=== PATIENT | female | born 1985 | race Caucasian/White ===

== ENCOUNTER 2016-07-04 10:08 | Observation (INO) | payer MEDICAID, OTHER ==
[~2016-07-04] VITALS: Ht 167.6 cm; Wt 58.5 kg
[~2016-07-04 10:08] MED LIST: CYCL-36 PO; NAPR550 PO; Z.0.NO CURRENT MEDS
[2016-07-04 10:12] VITALS: BP 116/79; PULSE 90; RESP 18; TEMP 97.6; O2SAT 98
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
[2016-07-04] MEDS ORDERED: SODIUM CHLORID 0.9% 500 ML INJ 500 ML IV ONE (11:15)
[2016-07-04] MEDS ORDERED: ONDANSETRON HCL 4 MG/2 ML VIAL IV PUSH ONE (11:15)
[2016-07-04] MEDS ORDERED: MORPHINE SULFATE 4 MG/ML INJ IV PUSH ONE (11:15)
[2016-07-04 11:40] LABS: BASOPHIL % 0.4 % (0.0-2.0); EOSINOPHIL # 0.1 TH/MM3 (0-0.4); HEMO FLAGS DIFF FINAL; LYMPH % 15.7 % (9.0-44.0); LYMPHOCYTE # 1.4 TH/MM3 (1.0-4.8); MEAN CORPUSCULAR HEMOGLOBIN 30.9 PG (27.0-34.0); MEAN CORPUSCULAR HGB CONC 33.2 % (32.0-36.0); MONO % 6.4 % (0.0-8.0); NEUT % 76.5 % (16.0-70.0); PLATELET COUNT 265 TH/MM3 (150-450); RED CELL DISTRIBUTION WIDTH 12.1 % (11.6-17.2); WHITE BLOOD COUNT 9.1 TH/MM3 (4.0-11.0)
[2016-07-04 12:00] LABS: POTASSIUM 3.7 MEQ/L (3.5-5.1)
[2016-07-04 12:03] LABS: BICARBONATE 27.3 MEQ/L (21.0-32.0)
[2016-07-04 12:16] VITALS: BP 140/81; PULSE 90; RESP 20; O2SAT 98
[2016-07-04 12:47] LABS: BETA HCG QUANT 24 MIU/ML (0-5)
[2016-07-04 19:20] VITALS: BP 126/64; PULSE 79; RESP 15; TEMP 98.3; O2SAT 99
[2016-07-04] MEDS ORDERED: ACETAMINOPHEN/HYDROcodone 325 MG/7.5 MG TAB PO PRN (22:30)
[2016-07-04] MEDS ORDERED: ACETAMINOPHEN 325 MG TAB PO PRN (22:30)
[2016-07-04] MEDS ORDERED: SODIUM CHLORID 0.9% 500 ML IV SCH (23:00)
[2016-07-04] MEDS ORDERED: LACTATED RINGER'S 1000 ML IV SCH (23:00)
[2016-07-04] MEDS ORDERED: INSULIN HUMAN REGULAR 1,000 UNITS/10 ML VIAL SQ PRN (23:00)
[2016-07-04] MEDS ORDERED: METOPROLOL TARTRATE 25 MG TAB PO PRN (23:00)
[2016-07-05 00:15] VITALS: BP 108/63; PULSE 71; RESP 16; TEMP 98.7; O2SAT 100
[2016-07-05 04:15] VITALS: BP 109/66; PULSE 63; RESP 16; TEMP 97.7; O2SAT 99
[2016-07-05 08:00] VITALS: BP 127/80; PULSE 80; RESP 18; TEMP 98.6; O2SAT 99
[2016-07-05] MEDS ORDERED: ceFAZolin INJ 1,000 MG VIAL ONE (08:24)
[2016-07-05] MEDS ORDERED: GENTAMICIN SULFATE 80 MG/2 ML VIAL ONE ×2 (08:24→10:17)
[2016-07-05] MEDS ORDERED: VANCOMYCIN HCL 1000 MG VIAL ONE ×2 (08:25→10:16)
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
[2016-07-05] MEDS ORDERED: MISC-226 (10:01)
[2016-07-05] MEDS ORDERED: ceFAZolin 2 GM PREMIX 50 ML ONE (10:16)
[2016-07-05] MEDS ORDERED: fentaNYL CITRATE 250 MCG/5 ML AMP ONE (10:20)
[2016-07-05] MEDS ORDERED: ACETAMINOPHEN 1000 MG/100 ML VIAL IV ONE (10:20)
[2016-07-05] MEDS ORDERED: DEXAMETHASONE SOD PHOS 4 MG/ML VIAL ONE (10:20)
[2016-07-05] MEDS ORDERED: HYDR-3288 PO (10:44)
[2016-07-05] MEDS ORDERED: ONDANSETRON HCL 4 MG/2 ML VIAL IVP PRN (10:45)
[2016-07-05] MEDS ORDERED: Post-op Orders (for Pharmacy) MISC XX ONE (10:45)
[2016-07-05] MEDS ORDERED: ACETAMINOPHEN/HYDROcodone 325 MG/7.5 MG TAB PO PRN (10:45)
[2016-07-05] MEDS ORDERED: MORPHINE SULFATE 4 MG/ML INJ IV PUSH PRN (10:45)
[2016-07-05] MEDS ORDERED: ceFAZolin INJ 1,000 MG VIAL IV ONE (10:47)
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
--- NOTE | 2016-07-05 11:36 | PD.OP ---
cc: Lew Marin MD Operative Report Date of Surgery: Jul 05, 2016 Preoperative Diagnosis: Postoperative Diagnosis: Procedure: ORIF right bimalleolar ankle fracture Anesthesia: Gen. Surgeon: Lew Marin Environmental Manager(s): MARSHA Chau PA-C The surgical procedure was assisted by my physician sales office assistant. My P.A. presence was necessary throughout this case for the manipulation and positioning of the surgical extremity. My P.A. was assisting me throughout the duration of this procedure. The skill set of a physician sales office assistant was medically necessary to complete this procedure. During the surgical case the registered nurse surgical services was working at the back table and the physician sales office assistant was directly assisting me. Operation and Findings: Patient was seen and evaluated preoperatively and found to have a displaced right bimalleolar ankle fracture. Informed consent was obtained after a detailed discussion of risk and benefits of surgery. The operative site was marked. Patient was brought to the OR, placed on the OR table, and given IV sedation and general endotracheal anesthesia. IV antibiotics were given preoperatively. A timeout procedure was performed. The left leg was prepped with alcohol followed by Hibiclens and draped in the usual sterile fashion. Attention was turned towards the distal fibula. A four-inch incision was made over the distal fibula. The subcutaneous tissue was dissected with Bovie. The fracture site was visualized. The fracture site was cleaned with curets. The fracture was now reduced. The fracture keyed into anatomic alignment. K-wires were used to h old provisional fixation. A lag screw was placed to compress fracture. A Synthes plate was selected. The plate was provisionally held to bone with K-wires. 3.5 cortical screws were used to compress the plate to bone. Multiple screws were placed above and below the fracture. Next attention was turned towards the medial malleolus. The medial malleolus supposed through a 3 cm incision. Saphenous vein was retracted. Fracture was visualized. Fracture was cleaned with curettes. Fracture was now reduced and keyed into anatomic alignment. K wires were used to hold provisional fixation. The medial malleolus was fractured into 2 relatively small fragments. Each fragment was reduced. K wires were used to hold provisional fixation. A 2.7 cortical screw was placed across the anterior fragment. An attempt was made to place a second 2.7 cortical lag screw across the other fragment. This fragment was too small and screw did not hold. Decision was made to the use only a single medial screw. Good compression was applied. Fluoroscopy confirmed well aligned fracture with well-placed hardware. Next, attention was turned to the syndesmosis. The syndesmosis was stressed. There was no widening of the syndesmosis with external rotation of the ankle. Incisions were thoroughly irrigated. The subcutaneous tissue was closed with 3- 0 PDS and the skin was closed with 3-0 nylon. Sterile dressings were applied. A well molded well-padded splint was applied. The patient was transferred to Recovery in stable condition. Needle and sponge counts were correct. Lew Marin MD Jul 05, 2016 11:36
[2016-07-05 11:53] VITALS: BP 120/57; PULSE 81; RESP 18; TEMP 98.6; O2SAT 96
[2016-07-05] MEDS ORDERED: ONDANSETRON HCL 4 MG/2 ML VIAL IV PUSH ONE (12:00)
[2016-07-05] MEDS ORDERED: PROPOFOL 200 MG/20 ML AMP IV ONE (12:00)
[2016-07-05] MEDS ORDERED: FAMOTIDINE 20 MG/2 ML VIAL IV ONE (12:00)
[2016-07-05] MEDS ORDERED: DO NOT ADM ANY ANTICOAGULANT DRUGS XX PRN (12:00)
[2016-07-05] MEDS ORDERED: *morphine SULFATE 8 MG/ML PERIprocedure ONLY ONE ×3 (12:06→12:26)
[2016-07-05] MEDS ORDERED: *MEPERIDINE 25 MG INJ VIAL PERIprocedural Use ONLY ONE (12:11)
[2016-07-05] MEDS ORDERED: *HYDROmorphone PF 1 MG VIAL PERIprocedural Use ONLY ONE (12:38)
--- NOTE | 2016-07-05 14:57 | RADRPT ---
EXAM DATE/TIME: 07/05/2016 11:24 [facility] COMPARISON: No previous studies available for comparison. INDICATIONS : ORIF right ankle. MEDICAL HISTORY : None. SURGICAL HISTORY : None. ENCOUNTER: Subsequent ACUITY: 2 days PAIN SCORE: Non-responsive. LOCATION: Right ankle. FINDINGS: Two view examination was performed of the right ankle. There is been open reduction and internal fixa tion of the bimalleolar fractures. The distal fibula secured with sideplate and osseous screws with a single osseous screw securing the medial malleolus. Ankle mortise is symmetric. Osseous structures a re in excellent anatomic alignment CONCLUSION: Successful open reduction and internal fixation of bimalleolar fractures as above. Ronal Fox MD on July 05, 2016 at 14:55 Board Certified Radiologist. This report was verified electronically.
[2016-07-05 16:00] VITALS: BP 135/92; PULSE 94; RESP 18; TEMP 97.2; O2SAT 99
[2016-07-05] MEDS ORDERED: ceFAZolin 2 GM PREMIX 50 ML IV SCH (18:00)
== END 2016-07-05 18:16 | disposition home or self-care (01) ==
LOC: PHEFT 10:08 → PHEDA 11:13 → HSDI 13:36 → N06B 19:26
PROVIDERS: ADMIT Orthopaedic Surgery Sports Medicine; ATTEND Orthopaedic Surgery Sports Medicine
DX: S82.841A Displaced bimalleolar fracture of right lower leg, initial encounter for closed fracture (principal); V27.4XXA Motorcycle driver injured in collision with fixed or stationary object in traffic accident, initial encounter; Y93.55 Activity, bike riding
CPT/HCPCS: 73600; 73610; 73630; 76000; 80048; 84702; 84703; 85025; 94150; 99211; 99284; C1713; E0113; G0378; G0463; J0131; J0690; J1100; J1170; J1580; J2175; J2270; J2405; J3010; J3370; J7040

== ENCOUNTER → 2016-08-14 | Outpatient (CLI) | payer MEDICAID, OTHER ==
[~2016-08-14] MED LIST changes: -CYCL-36 PO; +HYDR-3288 PO; +MISC-226; -NAPR550 PO; -Z.0.NO CURRENT MEDS
== END ==
LOC: HORT 12:06
PROVIDERS: ATTEND Physician Assistant
DX: Z46.89 Encounter for fitting and adjustment of other specified devices (principal)
CPT/HCPCS: L2114

== ENCOUNTER 2017-02-26 08:07 | Inpatient (IN) | payer MEDICAID ==
[2017-02-26] VITALS (26 sets, daily range): BP systolic 111–133; BP diastolic 50–91; PULSE 78–103; RESP 9–18; TEMP 97.9–98.2
[~2017-02-26] VITALS: Ht 167.6 cm; Wt 72.0 kg
[~2017-02-26 08:07] MED LIST changes: +AMOX500T PO; -HYDR-3288 PO; -MISC-226
[2017-02-26] MEDS ORDERED: LACTATED RINGER'S 1000 ML INJ 1,000 ML IV PRN (08:47)
[2017-02-26] MEDS ORDERED: LACTATED RINGER'S 1000 ML INJ 1,000 ML IV SCH (08:47)
[2017-02-26] MEDS ORDERED: OXYTOCIN 30 UNITS-500ML PREMIX 500 ML IV ONE (09:00)
[2017-02-26] MEDS ORDERED: CITRIC ACID-SODIUM CITRATE LIQ 30 ML UDC PO SCH (09:00)
[2017-02-26] MEDS ORDERED: ONDANSETRON HCL 4 MG/2 ML VIAL IV PUSH PRN (09:00)
[2017-02-26] MEDS ORDERED: MINERAL OIL 10 ML VIAL TOPICAL PRN (09:00)
[2017-02-26] MEDS ORDERED: SODIUM CHLORID 0.9% 500 ML INJ 500 ML IV PRN (09:00)
[2017-02-26] MEDS ORDERED: LIDOCAINE HCL 1% 50 ML VIAL I-DERMAL PRN (09:00)
[2017-02-26] MEDS ORDERED: LIDOCAINE HCL 1% 50 ML VIAL INFIL PRN (09:00)
[2017-02-26] MEDS ORDERED: PENICILLIN G POTASSIUM INJ 5,000,000 UNITS in SODIUM CHLORIDE 0.9% INJ 100 ML IV ONE (09:00)
[2017-02-26] MEDS ORDERED: SODIUM CHLOR 0.9% 1000 ML INJ 1,000 ML IV PRN (09:07)
--- NOTE | 2017-02-26 09:25 | PD ---
HPI Chief Complaint Contractions Date Seen: Feb 26, 2017 Time Seen: 09:00 Travel History International Travel<30 Days: No Contact w/Intl Traveler<30Days: No Known Affected Area: No History of Present Illness HPI Patient is a 31-year-old P2 at 38 weeks and 1 day who presents with contractions. She reports that she first started feeling contractions around 5 AM. There were about 30 minutes apart at that time. They progressed until there were about 5-10 minutes apart and were so painful that she was crying. She took her daughter to school and then presented to the OB ED. Regarding vaginal bleeding. She reports that she feels that she's been losing her mucous plug the last 5 days with associated pink, red, white mixed color vaginal discharge. She denies any leakage of fluid. She reports movement. [facility] She is GBS +. Weeks Gestation: 38 Para: 2 : 3 History Past Medical History Narrative Medical LGSIL on Pap Medical History: Denies Significant Hx Obstetric History Obstetric History Patient reports a prior history of hemorrhage with her last 2 deliveries. She delivered at 36 and 37 weeks, vaginal delivery, over 6 pounds for both deliveries. Past Surgical History Narrative Surgical Ankle surgery of her right ankle. Family History Narrative Family History Her mother has a history of colon cancer. Her paternal grandfather had an IL. Social History Narrative Social History Patient lives at home with her and 2 children. Alcohol Use: No Tobacco Use: No Substance Abuse: No Allergies-Medications (Allergen,Severity, Reaction): Coded Allergies: No Known Allergies (Verified Adverse Reaction, Unknown, 02/26/17) Home Meds Active Scripts Amoxicillin (Amoxicillin) 500 Mg Tab, 500 MG PO TID for Infection, #21 TAB 0 Refills Prov:Tahira Cuellar 02/14/17 Reported Medications Vit-Iron Carbonyl ( Plus Iron 29-1 mg) 29 Mg Iron-1 Mg Tab, 1 TAB PO DAILY for Nutritional Supplement, #30 TAB 0 Refills 02/26/17 Narrative Medication vitamins. Review of Systems General / Constitutional: No: Fever, Chills Eyes: No: Blurred Vision, Visual changes HENT: No: Headaches Cardiovascular: No: Chest Pain or Discomfort, Edema Respiratory: No: Short of Breath Gastrointestinal: No: Nausea, Vomiting Genitourinary: No: Dysuria Physical Exam Blood pressure 119/73, heart rate 78, respiratory rate 18, temperature 98.0, pain 8 out of 10 Narrative GENERAL: Well-nourished, well-developed patient. SKIN: Warm and dry. HEAD: Normocephalic and atraumatic. EYES: No scleral icterus. No injection or drainage. ENT: No nasal drainage noted. Mucous membranes pink. Airway patent. NECK: Supple, trachea midline. No JVD. CARDIOVASCULAR: Regular rate and rhythm without murmurs, gallops, or rubs. RESPIRATORY: Breath sounds equal bilaterally. No accessory muscle use. ABDOMEN/GI: Abdomen soft, non-tender, bowel sounds present, no rebound, no guarding Gravid to 38 weeks size GENITOURINARY: External Genitalia: intact and normal in appearance Dilatation: 5cm Effacement: 100% Station: -2 Presentation: Vertex Membranes: Intact, bulging Uterine Contractions: Irregular, about every 4-5 minutes FHT's: Category: Category 1 Baseline: 130 Reactive: Reactive Variability: Moderate Decels: None EXTREMITIES: No cyanosis or edema. BACK: Nontender without obvious deformity. No CVA tenderness. NEUROLOGICAL: Awake and alert. Motor and sensory grossly within normal limits. Five out of 5 muscle strength in all muscle groups. Normal speech. Data Data Vital Signs Reviewed: Yes Orders Orders Ob (2e) Additional Admit Info (02/26/17 08:48) Admit To Inpatient (02/26/17 ) Code Status (02/26/17 08:47) Vital Signs (Adult) .Per protocol (02/26/17 08:47) Activity Oob Ad Rosio (02/26/17 08:47) Heart (02/26/17 08:47) Amnioinfusion (02/26/17 08:47) Urinary Catheter Management .ONCE (02/26/17 08:47) Diet Liquid (02/26/17 Breakfast) Lactated Ringer's 1000 Ml Inj (Lr 1000 M (02/26/17 08:47) Lactated Ringer's 1000 Ml Inj (Lr 1000 M (02/26/17 08:47) Sodium Chlorid 0.9% 500 Ml Inj (Ns 500 M (02/26/17 09:00) Sodium Chlor 0.9% 1000 Ml Inj (Ns 1000 M (02/26/17 09:07) Lidocaine 1% Inj (50 Ml) (Xylocaine 1% I (02/26/17 09:00) Citric Acid-Sodium Citrate Liq (Bicitra (02/26/17 09:00) Ondansetron Inj (Zofran Inj) (02/26/17 09:00) Fentanyl Inj (Fentanyl Inj) (02/26/17 09:00) Fentanyl Inj (Fentanyl Inj) (02/26/17 09:00) Penicillin G Potassium Inj (Pfizerpen-G (02/26/17 09:00) Penicillin G Potassium Inj (Pfizerpen-G (02/26/17 13:00) Complete Blood Count With Diff (02/26/17 08:47) Hold Clot (02/26/17 08:47) Abo/Rh Blood Type (02/26/17 08:47) Urinalysis - C+S If Indicated (02/26/17 08:47) Drug Screen, Random Urine (02/26/17 08:47) Type And Screen (02/26/17 08:47) Resp Oxygen Non Rebreathe Mask (02/26/17 ) ^ Epidural / Intrathecal Infus (02/26/17 08:47) Oxytocin 30 Units-500ml Premix (Pitocin (02/26/17 09:00) Lidocaine 1% Inj (50 Ml) (Xylocaine 1% I (02/26/17 09:00) Light Mineral Oil (Muri-Lube Oil) (02/26/17 09:00) Inpatient Certification (02/26/17 ) Group B Strep: Positive MDM Medical Record Reviewed: Yes Plan Patient is a 31-year-old P2 at 38 weeks and 1 day who presents with contractions and a bulging bag, 5 cm dilated, 100% effaced, -2 station, irregular contractions every 4-5 minutes. Plan to admit patient for labor and delivery. [facility] She is GBS +. 1. Labor and delivery -Admit to inpatient -Routine labs -Patient wants epidural -Liquid diet -LR IV -Penicillin for GBS prophylaxis -Fentanyl when necessary for pain -Monitor vital signs -Monitor heart rate -Monitor labor status/tocometry -Anticipate normal vaginal delivery d/w Guanako Flores MD R2 Feb 26, 2017 09:25
[2017-02-26 09:31] LABS: AUTOMATED NEUTROPHIL # 13.2 TH/MM3 (1.8-7.7); BASOPHIL % 0.1 % (0.0-2.0); EOSINOPHIL # 0.1 TH/MM3 (0-0.4); EOSINOPHIL % 0.5 % (0.0-4.0); HEMATOCRIT 33.2 % (35.0-46.0); HEMO FLAGS DIFF FINAL; LYMPH % 8.3 % (9.0-44.0); LYMPHOCYTE # 1.3 TH/MM3 (1.0-4.8); MEAN CELL VOLUME 90.5 FL (80.0-100.0); MEAN CORPUSCULAR HEMOGLOBIN 31.5 PG (27.0-34.0); MEAN CORPUSCULAR HGB CONC 34.8 % (32.0-36.0); MONO % 6.5 % (0.0-8.0); NEUT % 84.6 % (16.0-70.0); PLATELET COUNT 228 TH/MM3 (150-450); RED BLOOD COUNT 3.67 MIL/MM3 (4.00-5.30); RED CELL DISTRIBUTION WIDTH 14.4 % (11.6-17.2); WHITE BLOOD COUNT 15.6 TH/MM3 (4.0-11.0)
[2017-02-26 09:34] LABS: BLOOD, URINE SMALL (NEG); COMMENT (UR) CULT NOT INDICATED; CULTURE IF INDICATED CULT NOT INDICATED; GLUCOSE,URINE NEG (NEG); KETONE, URINE NEG (NEG); NITRITE,URINE NEG (NEG); URINE COLOR YELLOW (YELLW/STRAW)
[2017-02-26] MEDS ORDERED: fentaNYL 2MCG-BUPIV 0.125% INJ 100 ML ONE (09:48)
[2017-02-26] MEDS ORDERED: PREN29TA PO (10:37)
--- NOTE | 2017-02-26 10:40 | HHI.HP ---
History & Physical H&P HPI HPI Chief Complaint Contractions Date Seen: Feb 26, 2017 Time Seen: 09:00 Travel History International Travel<30 Days: No Contact w/Intl Traveler<30Days: No Known Affected Area: No History of Present Illness HPI Patient is a 31-year-old P2 at 38 weeks and 1 day who presents with contractions. She reports that she first started feeling contractions around 5 AM. There were about 30 minutes apart at that time. They progressed until there were about 5-10 minutes apart and were so painful that she was crying. She took her daughter to school and then presented to the OB ED. Regarding vaginal bleeding. She reports that she feels that she's been losing her mucous plug the last 5 days with associated pink, red, white mixed color vaginal discharge. She denies any leakage of fluid. She reports movement. [facility] She is GBS +. Weeks Gestation: 38 Para: 2 : 3 History (Limited) History Past Medical History Narrative Medical LGSIL on Pap Medical History: Denies Significant Hx Obstetric History Obstetric History Patient reports a prior history of hemorrhage with her last 2 deliveries. She delivered at 36 and 37 weeks, vaginal delivery, over 6 pounds for both deliveries. Past Surgical History Narrative Surgical Ankle surgery of her right ankle. Family History Narrative Family History Her mother has a history of colon cancer. Her paternal grandfather had an PR. Social History Narrative Social History Patient lives at home with her and 2 children. Alcohol Use: No Tobacco Use: No Substance Abuse: No Allergies-Medications Allergies-Medications (Allergen,Severity, Reaction): Coded Allergies: No Known Allergies (Verified Adverse Reaction, Unknown, 02/26/17) Home Meds Active Scripts Amoxicillin (Amoxicillin) 500 Mg Tab, 500 MG PO TID for Infection, #21 TAB 0 Refills Prov:Tahira Cuellar 02/14/17 Reported Medications Vit-Iron Carbonyl ( Plus Iron 29-1 mg) 29 Mg Iron-1 Mg Tab, 1 TAB PO DAILY for Nutritional Supplement, #30 TAB 0 Refills 02/26/17 Narrative Medication vitamins. ROS Review of Systems General / Constitutional: No: Fever, Chills Eyes: No: Blurred Vision, Visual changes HENT: No: Headaches Cardiovascular: No: Chest Pain or Discomfort, Edema Respiratory: No: Short of Breath Gastrointestinal: No: Nausea, Vomiting Genitourinary: No: Dysuria Physical Exam Physical Exam Blood pressure 119/73, heart rate 78, respiratory rate 18, temperature 98.0, pain 8 out of 10 Narrative GENERAL: Well-nourished, well-developed patient. SKIN: Warm and dry. HEAD: Normocephalic and atraumatic. EYES: No scleral icterus. No injection or drainage. ENT: No nasal drainage noted. Mucous membranes pink. Airway patent. NECK: Supple, trachea midline. No JVD. CARDIOVASCULAR: Regular rate and rhythm without murmurs, gallops, or rubs. RESPIRATORY: Breath sounds equal bilaterally. No accessory muscle use. ABDOMEN/GI: Abdomen soft, non-tender, bowel sounds present, no rebound, no guarding Gravid to 38 weeks size GENITOURINARY: External Genitalia: intact and normal in appearance Dilatation: 5cm Effacement: 100% Station: -2 Presentation: Vertex Membranes: Intact, bulging Uterine Contractions: Irregular, about every 4-5 minutes FHT's: Category: Category 1 Baseline: 130 Reactive: Reactive Variability: Moderate Decels: None EXTREMITIES: No cyanosis or edema. BACK: Nontender without obvious deformity. No CVA tenderness. NEUROLOGICAL: Awake and alert. Motor and sensory grossly within normal limits. Five out of 5 muscle strength in all muscle groups. Normal speech. Data Data Data Vital Signs Reviewed: Yes Orders Orders Ob (2e) Additional Admit Info (02/26/17 08:48) Admit To Inpatient (02/26/17 ) Code Status (02/26/17 08:47) Vital Signs (Adult) .Per protocol (02/26/17 08:47) Activity Oob Ad Rosio (02/26/17 08:47) Heart (02/26/17 08:47) Amnioinfusion (02/26/17 08:47) Urinary Catheter Management .ONCE (02/26/17 08:47) Diet Liquid (02/26/17 Breakfast) Lactated Ringer's 1000 Ml Inj (Lr 1000 M (02/26/17 08:47) Lactated Ringer's 1000 Ml Inj (Lr 1000 M (02/26/17 08:47) Sodium Chlorid 0.9% 500 Ml Inj (Ns 500 M (02/26/17 09:00) Sodium Chlor 0.9% 1000 Ml Inj (Ns 1000 M (02/26/17 09:07) Lidocaine 1% Inj (50 Ml) (Xylocaine 1% I (02/26/17 09:00) Citric Acid-Sodium Citrate Liq (Bicitra (02/26/17 09:00) Ondansetron Inj (Zofran Inj) (02/26/17 09:00) Fentanyl Inj (Fentanyl Inj) (02/26/17 09:00) Fentanyl Inj (Fentanyl Inj) (02/26/17 09:00) Penicillin G Potassium Inj (Pfizerpen-G (02/26/17 09:00) Penicillin G Potassium Inj (Pfizerpen-G (02/26/17 13:00) Complete Blood Count With Diff (02/26/17 08:47) Hold Clot (02/26/17 08:47) Abo/Rh Blood Type (02/26/17 08:47) Urinalysis - C+S If Indicated (02/26/17 08:47) Drug Screen, Random Urine (02/26/17 08:47) Type And Screen (02/26/17 08:47) Resp Oxygen Non Rebreathe Mask (02/26/17 ) ^ Epidural / Intrathecal Infus (02/26/17 08:47) Oxytocin 30 Units-500ml Premix (Pitocin (02/26/17 09:00) Lidocaine 1% Inj (50 Ml) (Xylocaine 1% I (02/26/17 09:00) Light Mineral Oil (Muri-Lube Oil) (02/26/17 09:00) Inpatient Certification (02/26/17 ) Group B Strep: Positive MDM MDM Medical Record Reviewed: Yes Plan Patient is a 31-year-old P2 at 38 weeks and 1 day who presents with contractions and a bulging bag, 5 cm dilated, 100% effaced, -2 station, irregular contractions every 4-5 minutes. Plan to admit patient for labor and delivery. [facility] She is GBS +. 1. Labor and delivery -Admit to inpatient -Routine labs -Patient wants epidural -Liquid diet -LR IV -Penicillin for GBS prophylaxis -Fentanyl when necessary for pain -Monitor vital signs -Monitor heart rate -Monitor labor status/tocometry -Anticipate normal vaginal delivery d/w Dr. Seth Galarza,Guanako Skinner MD R2 Feb 26, 2017 10:40
[2017-02-26] MEDS ORDERED: METHYLERGONOVINE MALEATE 0.2 MG/ML VIAL ONE (10:58)
[2017-02-26] MEDS ORDERED: METHYLERGONOVINE MALEATE 0.2 MG/ML VIAL IM ONE (11:00)
[2017-02-26] MEDS ORDERED: WITCH HAZEL 50%/GLYCERIN 12.5% 40 PAD JAR TOPICAL PRN (11:30)
[2017-02-26] MEDS ORDERED: ZOLPIDEM TARTRATE 5 MG TAB PO PRN (11:30)
[2017-02-26] MEDS ORDERED: OXYTOCIN 30 UNITS-500ML PREMIX 500 ML IV SCH (11:30)
[2017-02-26] MEDS ORDERED: oxyCODONE/ACETAMINOPHEN 5 MG/325 MG TAB PO PRN ×2 (11:30)
[2017-02-26] MEDS ORDERED: SODIUM CHLORIDE 0.9% FLUSH 10 ML FLUSH IV FLUSH PRN (11:30)
[2017-02-26] MEDS ORDERED: ALUMINUM/MAGNESIUM/SIMETH 30 ML CUP PO PRN (11:30)
[2017-02-26] MEDS ORDERED: BENZOCAINE 20% TOPICAL SPRAY 60 ML CAN TOPICAL PRN (11:30)
[2017-02-26] MEDS ORDERED: ONDANSETRON ODT 4 MG TAB PO PRN (11:30)
--- NOTE | 2017-02-26 11:31 | PD.OB.DELI ---
Weeks gestation: 38 Gest age assessed date: Feb 26, 2017 Gest age assessed time: 09:00 Pt started active labor?: Yes Medical induction of labor?: No Artificial rupture of membrane: No Anesthesia: Epidural Episiotomy: None Vaginal Delivery: Normal Presentation: Occiput anterior Nuchal Cord: x1 Delayed cord clamping (45 sec): Yes : Male Delivery date: Feb 26, 2017 Delivery time: 11:11 One Minute : 8 Five Minute : 9 Weight: 2995g, 6 lbs. 10 oz. Placenta: Spontaneous delivery, Intact, 3 vessel cord Laceration: Vaginal laceration, 1 deg Estimated blood loss: 100 Additional Information Patient delivered head by maternal effort. Nuchal cord 1 was reduced. Patient delivered baby without any complications except for a right sided periurethral first-degree laceration that was hemostatic and did not require intervention. Placenta was manually extracted to shorten the third stage of labor given her history of hemorrhage. Pitocin was started with delivery of anterior shoulder. Patient's uterus was noted to be firm by palpation. The entire delivery was supervised by Dr. Stone. Guanako Galarza MD R2 Feb 26, 2017 11:31
[2017-02-26] MEDS ORDERED: fentaNYL 2MCG-BUPIV 0.125% 100 ML EPIDURAL SCH (12:00)
[2017-02-26] MEDS ORDERED: NO SYSTEM NARCOTICS PRN (12:00)
[2017-02-26] MEDS ORDERED: DO NOT ADMINISTER ANTICOAGULANTS PRN (12:00)
[2017-02-26] MEDS ORDERED: ePHEDrine/NS 25 MG/5 ML SYR IV PUSH PRN (12:00)
[2017-02-26] MEDS ORDERED: PENICILLIN G POTASSIUM INJ 2,500,000 UNITS in SODIUM CHLORIDE 0.9% INJ 100 ML IV SCH (13:00)
[2017-02-26] MEDS ORDERED: DIPHTH/TETANUS/ACEL PERTUSSIS (BOOSTER) 0.5 ML VIAL/PFS IM ONE (16:00)
[2017-02-26] MEDS ORDERED: MEASLES, MUMPS, RUBELLA VACCINE 0.5 ML VIAL SQ ONE (16:00)
[2017-02-26] MEDS ORDERED: SODIUM CHLORIDE 0.9% FLUSH 10 ML FLUSH IV FLUSH SCH (21:00)
[2017-02-27] MEDS: IBUPROFEN 600 MG TAB PO PRN ×4 (01:27→21:49)
[2017-02-27] MEDS: ACETAMINOPHEN 325 MG TAB PO PRN ×4 (01:27→21:49)
[2017-02-27] MEDS: DOCUSATE SODIUM 50 MG/SENNA 8.6 MG TAB PO PRN ×2 (01:27→15:29)
--- NOTE | 2017-02-27 08:45 | HHI.OB ---
Subjective Remarks Patient is a 31-year-old delivered at 38 weeks and 1 days. Patient is day 1 after . Patient's pain is well-controlled. Patient reports eating and drinking without any nausea or vomiting. Patient reports minimal bleeding. Patient has passed gas but no bowel movements. Patient is walking without lower extremity pain or shortness of breath. Patient reports desire for contraception (will arrange with outside provider) and breast-feeding. Objective Vitals/I&O Vital Signs Date Time Temp Pulse Resp B/P (MAP) Pulse Ox O2 Delivery O2 Flow Rate FiO2 02/26/17 19:34 98.2 02/26/17 19:34 18 02/26/17 19:33 128/76 (93) 02/26/17 19:33 90 9 02/26/17 12:16 80 118/78 (91) 02/26/17 12:15 17 02/26/17 12:01 98 119/73 (88) 02/26/17 11:46 93 133/91 (105) 02/26/17 11:34 97.9 02/26/17 11:34 17 02/26/17 11:31 97 115/69 (84) 02/26/17 11:29 17 02/26/17 11:26 97 122/52 (75) 02/26/17 11:21 82 118/87 (97) 02/26/17 11:16 103 125/50 (75) 02/26/17 10:55 111/63 (79) 02/26/17 10:55 98 02/26/17 10:55 94 02/26/17 10:50 94 115/76 (89) 02/26/17 10:50 97 02/26/17 10:45 92 02/26/17 10:45 17 02/26/17 10:45 90 124/79 (94) 02/26/17 10:41 88 120/68 (85) 02/26/17 10:40 92 02/26/17 10:35 92 02/26/17 10:35 88 128/78 (95) 02/26/17 10:31 91 129/72 (91) 02/26/17 10:30 18 02/26/17 10:30 91 02/26/17 10:27 88 128/76 (93) 02/26/17 10:25 85 127/74 (91) 02/26/17 10:25 85 02/26/17 10:20 78 116/81 (93) 02/26/17 10:20 98 02/26/17 10:18 79 117/72 (87) 02/26/17 10:17 88 122/77 (92) 02/26/17 10:15 95 02/26/17 10:15 94 129/76 (93) Objective Remarks GENERAL: Well-nourished, well-developed patient. CARDIOVASCULAR: Regular rate and rhythm without murmurs, gallops, or rubs. RESPIRATORY: Breath sounds equal bilaterally. No accessory muscle use. ABDOMEN/GI: Abdomen soft, non-tender. Fundus: Firm, non-tender at umbilicus. GENITOURINARY: Light to moderate bleeding. EXTREMITIES: No cyanosis or edema, non-tender, without signs of DVT. Medications and IVs Current Medications Medications (Trade) Dose Ordered Sig/Alethea Route Start Time Stop Time Status Last Admin (NS Flush) 2 ml BID IV FLUSH 02/26/17 21:00 (NS Flush) 2 ml UNSCH PRN IV FLUSH 02/26/17 11:30 (Tylenol) 650 mg Q4H PRN PO 02/26/17 11:30 02/27/17 01:27 (Motrin) 600 mg Q6H PRN PO 02/26/17 11:30 02/27/17 01:27 (Percocet 5-325 Mg) 1 tab Q4H PRN PO 02/26/17 11:30 (Percocet 5-325 Mg) 2 tab Q4H PRN PO 02/26/17 11:30 (Americaine 20% Top Spr) 1 spray Q4H PRN TOPICAL 02/26/17 11:30 (Tucks Pads) 1 applic QID PRN TOPICAL 02/26/17 11:30 (Ashley-Colace) 2 tab Q12H PRN PO 02/26/17 11:30 02/27/17 01:27 (Ambien) 5 mg HS PRN PO 02/26/17 11:30 (Mag-Al Plus Susp Liq) 15 ml Q8H PRN PO 02/26/17 11:30 (Zofran Odt) 4 mg Q6H PRN PO 02/26/17 11:30 Miscellaneous Information No systemic narcotics to be given except... UNSCH PRN .XX 02/26/17 12:00 02/27/17 11:59 Miscellaneous Information DO NOT ADMINISTER ANY ANTICOAGUL... UNSCH PRN .XX 02/26/17 12:00 02/27/17 11:59 Fentanyl/ Bupivacaine HCl 100 ml @ 0 mls/hr TITRATE EPIDURAL 02/26/17 12:00 (ePHEDrine/NS 25 MG/5 ML SYR) 10 mg UNSCH PRN IV PUSH 02/26/17 12:00 02/27/17 11:59 Assessment/Plan Problem List: (1) (spontaneous vaginal delivery) ICD Codes: O80 - Encounter for full-term uncomplicated delivery Assessment and Plan Patient is a 31-year-old delivered at 38 weeks and 1 days. Patient is day 1 after . Patient was counseled to do 6 weeks of pelvic rest. Patient was counseled to follow up in 6 weeks. Patient requested follow-up and plans to arrange for contraception with outside provider. --AF VSS --Continue routine care --Motrin and Tylenol when necessary for pain --Encourage OOB --Pelvic rest for 6 weeks will need follow-up appointment at that time. --Contraception: will arrange with outside provider --Anticipate discharge tomorrow Discussed with Dr. Stone Discharge Planning Likely tomorrow Dong Verma MD R1 Feb 27, 2017 08:45
[2017-02-27] MEDS: BENZONATATE 100 MG CAP PO PRN ×2 (13:56→21:48)
[2017-02-27 19:30] VITALS: BP 101/67; PULSE 70; RESP 16; TEMP 98.1
[2017-02-28 07:50] VITALS: BP 106/69; PULSE 74; RESP 16; TEMP 98.6
[2017-02-28] MEDS: BENZONATATE 100 MG CAP PO PRN (09:06)
[2017-02-28] MEDS ORDERED: IBUP-232 PO (10:21)
[2017-02-28] MEDS ORDERED: BREAST PUMP1 MI1 (10:21)
[2017-02-28] MEDS ORDERED: ACET325T15 PO (10:21)
[2017-02-28] MEDS ORDERED: BENZ100 PO (10:21)
--- NOTE | 2017-02-28 10:22 | HHI.DCPOC ---
Discharge Care Plan Diagnosis: (1) (spontaneous vaginal delivery) Report Symptoms to Your Doctor -Temperature above 100.5 degrees -Redness, of incision or excessive or foul smelling drainage -Unusual pain or calf pain -Increased vaginal bleeding -Painful or difficulty urinating -Feelings of extreme sadness or anxiety after 2 weeks Goals to Promote Your Health * To prevent worsening of your condition and complications, please follow up with your doctor. * To maintain your health at the optimal level, please follow your doctor's recommendations. Directions to Meet Your Goals Take your medications as prescribed Follow your dietary instruction Follow activity as directed Ensure plenty of rest for recovery Drink fluids for hydration Keep your appointments as scheduled Take your immunizations and boosters as scheduled If your symptoms worsen call your PCP, if no PCP go to Urgent Care Center or Emergency Room Smoking is Dangerous to Your Health. Avoid second hand smoke Call the 24-hour crisis hotline for domestic abuse at Guanako Galarza MD R2 Feb 28, 2017 10:22
--- NOTE | 2017-02-28 10:50 | HHI.OB ---
Subjective Remarks Patient is a 31-year-old delivered at 38 weeks and 1 days. Patient is day 2 after NVD. Patient's pain is well-controlled. Patient reports eating and drinking without any nausea or vomiting. Patient reports minimal bleeding. Patient has passed gas and bowel movements. Patient is walking without lower extremity pain or shortness of breath. Patient does complain of a persistent cough for the past 3 days. Denies chest pain, fevers. Patient reports desire for contraception by her outside provider and formula feeds. Objective Vitals/I&O Vital Signs Date Time Temp Pulse Resp B/P (MAP) Pulse Ox O2 Delivery O2 Flow Rate FiO2 02/28/17 07:50 98.6 74 16 106/69 (81) 02/27/17 19:30 98.1 70 16 101/67 (78) Objective Remarks GENERAL: Well-nourished, well-developed patient. CARDIOVASCULAR: Regular rate and rhythm without murmurs, gallops, or rubs. RESPIRATORY: Breath sounds equal bilaterally. No accessory muscle use. ABDOMEN/GI: Abdomen soft, non-tender. Fundus: Firm, non-tender at umbilicus. GENITOURINARY: Light to moderate bleeding. EXTREMITIES: No cyanosis or edema, non-tender, without signs of DVT. Medications and IVs Current Medications Medications (Trade) Dose Ordered Sig/Alethea Route Start Time Stop Time Status Last Admin (NS Flush) 2 ml BID IV FLUSH 02/26/17 21:00 (NS Flush) 2 ml UNSCH PRN IV FLUSH 02/26/17 11:30 (Tylenol) 650 mg Q4H PRN PO 02/26/17 11:30 02/27/17 21:49 (Motrin) 600 mg Q6H PRN PO 02/26/17 11:30 02/27/17 21:49 (Percocet 5-325 Mg) 1 tab Q4H PRN PO 02/26/17 11:30 (Percocet 5-325 Mg) 2 tab Q4H PRN PO 02/26/17 11:30 (Americaine 20% Top Spr) 1 spray Q4H PRN TOPICAL 02/26/17 11:30 (Tucks Pads) 1 applic QID PRN TOPICAL 02/26/17 11:30 (Ashley-Colace) 2 tab Q12H PRN PO 02/26/17 11:30 02/27/17 15:29 (Ambien) 5 mg HS PRN PO 02/26/17 11:30 (Mag-Al Plus Susp Liq) 15 ml Q8H PRN PO 02/26/17 11:30 (Zofran Odt) 4 mg Q6H PRN PO 02/26/17 11:30 Fentanyl/ Bupivacaine HCl 100 ml @ 0 mls/hr TITRATE EPIDURAL 02/26/17 12:00 (Tessalon) 100 mg TID PRN PO 02/27/17 12:00 02/28/17 09:06 Assessment/Plan Problem List: (1) (spontaneous vaginal delivery) ICD Codes: O80 - Encounter for full-term uncomplicated delivery (2) Cough ICD Codes: R05 - Cough Status: Acute Assessment and Plan Patient is a 31-year-old delivered at 38 weeks and 1 days. Patient is day 2 after . Patient was counseled to do 6 weeks of pelvic rest. Patient was counseled to follow up in 6 weeks. Patient requested follow-up and plans to arrange for contraception with outside provider. --AF VSS --Continue routine care --Motrin and Tylenol when necessary for pain --Encourage OOB --Pelvic rest for 6 weeks will need follow-up appointment at that time. --Contraception: will arrange with outside provider --Anticipate discharge today Cough: Cough for the past 3 days productive of clear/white sputum Patient states that her daughter recently had a cold which she feels that she may have caught Patient has been afebrile, vitals within normal limits, chest clear to auscultation. Likely viral in etiology Will treat symptomatically with Tessalon Perles and Mucinex. Patient advised to contact her primary provider if she becomes febrile or symptoms persist for another week Discussed with Dr. Santacruz Discharge Planning Discharge today Dong Verma MD R1 Feb 28, 2017 10:50
== END 2017-02-28 12:18 | disposition home or self-care (01) | DRG 775 ==
LOC: HOBED 08:07 → H2EB 08:56 → H1EA 12:53
PROVIDERS: ADMIT Obstetrics & Gynecology; ATTEND Obstetrics & Gynecology
PROC: 10E0XZZ Delivery of Products of Conception, External Approach (ICD-10-PCS; principal; 2017-02-26)
DX: O69.81X0 Labor and delivery complicated by cord around neck, without compression, not applicable or unspecified (principal); O99.824 Streptococcus B carrier state complicating childbirth; O70.0 First degree perineal laceration during delivery; R05 Cough; Z3A.38 38 weeks gestation of pregnancy; Z37.0 Single live birth
CPT/HCPCS: 59025; 80307; 81001; 85025; 86850; 86900; 86901; J2210; J2540; J2590; J7120